=== PATIENT | female | born 1955 ===

== ENCOUNTER 2016-12-22 15:28 | Observation (INO) | payer SELFPAY ==
--- NOTE | 2016-12-22 16:18 | ED PDOC ---
Lower Extremity Pain/Injury Time Seen by Provider: 12/22/16 15:45 Chief Complaint (Nursing): Lower Extremity Problem/Injury Chief Complaint (Provider): Lower Extremity Problem History Per: Patient History/Exam Limitations: no limitations Onset/Duration Of Symptoms: Days (1x week) Current Symptoms Are (Timing): Still Present Severity: Moderate Additional Complaint(s): 61 year old female who was being evaluated in family medicine clinic today who sent patient to ED. Patient reports left lower extremity swelling for 1x week and chest pain for the past 3x days. She also complains of worsening sob. She denies any trauma to the leg, and denies having any associated symptoms of fevers, cough, ear or eye symptoms, abdominal pain, nausea, vomiting, diarrhea, and dysuria. PMD: Krystal Puri MD Past Medical History Reviewed: Historical Data, Nursing Documentation, Vital Signs Vital Signs: Last Vital Signs Temp 97.8 F 12/22/16 15:30 Pulse 74 12/22/16 15:30 Resp 16 12/22/16 15:30 BP 152/90 H 12/22/16 15:30 Pulse Ox 100 12/22/16 15:30 - Medical History PMH: Hypothyroidism Other PMH: chronic shortness of breath - Surgical History Other surgeries: thyroidectomy - Family History Family History: States: Unknown Family Hx - Social History Current smoker - smoking cessation education provided: No Alcohol: None Drugs: Denies - Home Medications Home Medications: Ambulatory Orders Medication Instructions Recorded Levothyroxine [Synthroid] 75 mcg PO DAILY 07/19/16 - Allergies Allergies/Adverse Reactions: Allergies Allergy/AdvReac Type Severity Reaction Status Date / Time No Known Allergies Allergy Verified 12/22/16 15:30 Review of Systems ROS Statement: Except As Marked, All Systems Reviewed And Found Negative Constitutional: Negative for: Fever, Chills Eyes: Negative for: Pain ENT: Negative for: Ear Pain Cardiovascular: Positive for: Chest Pain (3x days) Respiratory: Positive for: Shortness of Breath (chronic). Negative for: Cough Gastrointestinal: Negative for: Nausea, Vomiting, Abdominal Pain, Diarrhea Genitourinary Female: Negative for: Dysuria Musculoskeletal: Positive for: Other (left lower leg swelling). Negative for: Leg Pain Psych: Negative for: Anxiety, Depression Physical Exam - Reviewed Nursing Documentation Reviewed: Yes Vital Signs Reviewed: Yes - Physical Exam Appears: Positive for: Well, Non-toxic, No Acute Distress Head Exam: Positive for: ATRAUMATIC, NORMOCEPHALIC Skin: Positive for: Normal Color, Warm, Dry Cardiovascular/Chest: Positive for: Regular Rate, Rhythm Respiratory: Positive for: Normal Breath Sounds. Negative for: Respiratory Distress Gastrointestinal/Abdominal: Positive for: Normal Exam, Soft. Negative for: Tenderness Extremity: Positive for: Tenderness (left madhavi: pin point tenderness), Swelling (left calf swelling. left ankle swelling.), Other (right lower extremity: normal ) Neurologic/Psych: Positive for: Alert, Oriented (3x) - Laboratory Results Result Diagrams: 12/22/16 16:58 12/22/16 16:58 - ECG O2 Sat by Pulse Oximetry: 100 (RA) Pulse Ox Interpretation: Normal Medical Decision Making Medical Decision Makin:45 Initial impression: 61 year old female with left lower leg swelling and chest pain. Differential diagnoses include but are not limited to ACS vs chf vs dvt: * XRay ankle AP lat 2 views left * US duplex lower extrm veinous left * B type natriuretic peptide * CK-MB * CMP * creatine phosphokinase * troponin I * CBC * aspirin * reevaluation Scribe Attestation: Documented by Perri Chavez, acting as a scribe for Caridad Rutledge MD. Provider Scribe Attestation: All medical record entries made by the Scribe were at my direction and personally dictated by me. I have reviewed the chart and agree that the record accurately reflects my personal performance of the history, physical exam, medical decision making, and the department course for this patient. I have also personally directed, reviewed, and agree with the discharge instructions and disposition. 5:32PM EKG shows NSR at 65pm with normal intervals and no ST changes. U/s negative for dvt. Trop x 1 negative. BNP negative. Cxray negative. Spoke to Dr. Masters, family medicine and patient to be transferred to tele observation for chest pain , shortness fo breath. Disposition - Clinical Impression Clinical Impression: Chest pain - Disposition Disposition Time: 18:00 Condition: FAIR - Pt Status Changed To: Hospital Disposition Of: Observation
[2016-12-22 17:05] LABS: BASO % 0.6 % (0.0-2.0); EOS # 0.1 K/uL (0.0-0.7); EOS % 1.9 % (0.0-4.0); LYMPH # 1.4 K/uL (1.0-4.3); LYMPH % 25.8 % (20.0-40.0); MEAN CELL VOLUME 87.4 fl (81.0-99.0); MEAN CORPUSCULAR HEMOGLOBIN 28.6 pg (27.0-31.0); MEAN CORPUSCULAR HGB CONC 32.7 g/dL (33.0-37.0); MONO # 0.4 K/uL (0.0-0.8); MONO % 8.2 % (0.0-10.0); NEUT # 3.3 K/uL (1.8-7.0); NEUT % 63.5 % (50.0-75.0); NRBC % 0.1 % (0.0-0.0); RED CELL DISTRIBUTION WIDTH 13.4 % (11.5-14.5); WHITE BLOOD COUNT 5.3 K/uL (4.8-10.8)
--- NOTE | 2016-12-22 17:21 | US ---
HISTORY: Left lower extremity swelling . PRIORS: None. FINDINGS: 2-D, color and duplex Doppler analysis of the lower extremity venous circulation using routine protocol from the femoral veins through the popliteal veins. Venous compressibility: Normal. Flow and augmentation patterns: Normal. Visualized veins upper third of calf: Normal. Rose cyst: None. IMPRESSION: No sonographic or Doppler evidence for DVT in left lower extremity.
[2016-12-22 17:23] LABS: ALB/GLOB RATIO 1.2 (1.0-2.1); ALKALINE PHOSPHATASE 69 U/L (38-126); ALT/SGPT 30 U/L (9-52); AST/SGOT 23 U/L (14-36); BILIRUBIN,TOTAL 0.5 mg/dl (0.2-1.3); BLOOD UREA NITROGEN 11 mg/dl (7-17); CALCIUM 8.6 mg/dL (8.4-10.2); CARBON DIOXIDE 29 mmol/L (22-30); CHLORIDE 106 mmol/L (98-107); GFR AFRICAN-AMERICAN > 60; GLUCOSE,RANDOM 89 mg/dL (65-105); POTASSIUM 3.6 MMOL/L (3.6-5.0); SODIUM 142 mmol/l (132-148); TOTAL PROTEIN 7.6 G/DL (6.3-8.2)
--- NOTE | 2016-12-22 20:34 | CP.PCM.HP ---
History of Present Illness - History of Present Illness History of Present Illness: CC: Chest pain and LLE swelling 61F referred from [facility] for LLE swelling for 2 weeks without recent travel, immobilization, or trauma. Denies improvement in mornings after having extremity elevated overnight, and at time of evaluation denied any calf/leg pain. Recent onset of constipation and denies having any trouble before and reports she used to be regular. She denies any blood or mucous with BM In addition, patient c/o intermittent sharp, non-radiating chest pain that occurs w/wo activity and is not associated with dizziness/SOB/palpitations/ diaphoresis/nausea. Otherwise, she denies cough, fevers, chills, weight loss, loss of appetite, vaginal bleeding, abdominal pain, dysuria. PMH: HLD, Uterine ca, thyroid ca?, hypothyroid PSH: partial thyroidectomy (as per patient), SURESH/BSO Denies smoking/alcohol/drugs ALL: NKDA ANDREW: Synthroid 75mcg, PO, Daily Present on Admission - Present on Admission Any Indicators Present on Admission: No Review of Systems - Review of Systems All systems: reviewed and no additional remarkable complaints except - Cardiovascular Cardiovascular: Chest Pain - Integumentary Integumentary: Swelling (LLE) Past Patient History - Past Medical History & Family History Past Medical History?: Yes - Past Social History Alcohol: None Drugs: Denies - ENDOCRINE/METABOLIC Hx Endocrine Disorders: Yes - PSYCHIATRIC Hx Substance Use: No - SURGICAL HISTORY Hx Surgeries: Yes Hx Thyroidectomy: Yes - ANESTHESIA Hx Anesthesia: Yes Hx Anesthesia Reactions: No Hx Malignant Hyperthermia: No Meds Allergies/Adverse Reactions: Allergies Allergy/AdvReac Type Severity Reaction Status Date / Time No Known Allergies Allergy Verified 12/22/16 15:30 Physical Exam - Constitutional Appears: Well, Non-toxic, No Acute Distress - Head Exam Head Exam: ATRAUMATIC, NORMAL INSPECTION - Eye Exam Eye Exam: EOMI, PERRL - ENT Exam ENT Exam: Mucous Membranes Moist, Normal Exam - Neck Exam Neck exam: Positive for: Normal Inspection (Has scar from partial thyroidectomy) . Negative for: Lymphadenopathy - Respiratory Exam Respiratory Exam: Clear to Auscultation Bilateral, NORMAL BREATHING PATTERN. absent: Rales, Wheezes - Cardiovascular Exam Cardiovascular Exam: REGULAR RHYTHM. absent: JVD - GI/Abdominal Exam GI & Abdominal Exam: Normal Bowel Sounds, Soft. absent: Tenderness - Extremities Exam Extremities exam: Positive for: full ROM, normal capillary refill, pedal pulses present. Negative for: normal inspection (LLE non-pitting edema, non- erythematous, no cords palpated, no pain, checked groin for LN was negative), pedal edema - Neurological Exam Neurological exam: Alert, Oriented x3 Results - Vital Signs Recent Vital Signs: Last Vital Signs Temp 36.3 C L 12/22/16 20:08 Pulse 70 12/22/16 20:08 Resp 18 12/22/16 20:08 BP 160/78 H 12/22/16 20:08 Pulse Ox 99 12/22/16 20:08 - Labs Result Diagrams: 12/22/16 16:58 12/22/16 16:58 Assessment & Plan (1) Chest pain Assessment and Plan: History and physical exam inconsistent with cardiac-related chest pain at this time. MSK vs. reflux - Serial Troponins - repeat TSH Status: Acute (2) Left leg swelling Assessment and Plan: Ultrasound negative for DVT, no enlarged LN palpated at groin and no cords, pedal pulses present. Cannot rule out LEFT pelvic vein/LN/mass leading to obstruction or external compression on venous return. Patient does report recent onset constipation which would be unrelated to current thyroid levels, however she denies appetite or weight changes. - f/u official duplex results - Consider pelvic imaging to rule out occult masses Status: Acute (3) DVT prophylaxis Assessment and Plan: Lovenox 40mg, SC, Daily Status: Acute
[2016-12-22 21:29] LABS: THYROID STIMULATING HORMONE 0.56 mIU/ML (0.46-4.68)
[2016-12-23] MEDS ORDERED: Levothyroxine 75 MCG TAB PO SCH (06:30)
--- NOTE | 2016-12-23 08:22 | RAD ---
HISTORY: chest pain COMPARISON: No prior. FINDINGS: LUNGS: No active pulmonary disease. PLEURA: No significant pleural effusion identified, no pneumothorax apparent. CARDIOVASCULAR: Normal. OSSEOUS STRUCTURES: No significant abnormalities. VISUALIZED UPPER ABDOMEN: Normal. OTHER FINDINGS: None. IMPRESSION: No active disease.
--- NOTE | 2016-12-23 08:31 | RAD ---
PROCEDURE: Left Ankle Radiographs. HISTORY: ankle swelling COMPARISON: None FINDINGS: BONES: Normal. No fracture. JOINTS: Normal. No osteoarthritis. Ankle mortise maintained. Talar dome intact SOFT TISSUES: [id number] soft tissue swelling seen around the left ankle. OTHER FINDINGS: None. IMPRESSION: No evidence of acute fracture or dislocation. [id number] soft tissue swelling.
[2016-12-23] MEDS ORDERED: Enoxaparin 40 mg Syringe SC SCH (09:00)
--- NOTE | 2016-12-23 12:50 | CP.PCM.PN ---
Subjective - Date & Time of Evaluation Date of Evaluation: 12/23/16 Time of Evaluation: 09:00 - Subjective Subjective: No acute events overnight. Patient seen and examined bedside. Sitting upright in bed, no acute distress. Chest pain resolved for now. Complaining of tenderness mainly in left lower extremity. Hurts with walking, tender to palpation. She stands all day while working, does not ambulate much at work. Denies history of personal or family history of DVT. Objective - Vital Signs/Intake and Output Vital Signs (last 24 hours): Temp Pulse Resp BP Pulse Ox 98.0 F 70 18 125/69 97 12/23/16 12:41 12/23/16 12:41 12/23/16 12:41 12/23/16 12:41 12/23/16 12:41 - Medications Medications: Current Medications Enoxaparin Sodium (Lovenox) 40 mg SC DAILY [facility] PRN Reason: Protocol Last Admin: 12/23/16 08:18 Dose: 40 mg Levothyroxine Sodium (Synthroid) 75 mcg PO DAILY@0630 [facility] Last Admin: 12/23/16 06:05 Dose: 75 mcg - Constitutional Appears: No Acute Distress - Head Exam Head Exam: NORMAL INSPECTION - ENT Exam ENT Exam: Mucous Membranes Moist - Respiratory Exam Respiratory Exam: Clear to Ausculation Bilateral, NORMAL BREATHING PATTERN. absent: Respiratory Distress - Cardiovascular Exam Cardiovascular Exam: REGULAR RHYTHM, RRR, +S1, +S2 - GI/Abdominal Exam GI & Abdominal Exam: Soft, Normal Bowel Sounds. absent: Tenderness - Extremities Exam Additional comments: visually, left calf appears larger than right, severe tenderness in lower leg and upper thigh to deep palpation. ?cord palpable left calf and thigh. no erythema, no warmth. no varices. - Neurological Exam Neurological Exam: Alert, Awake, CN II-XII Intact, Oriented x3 - Psychiatric Exam Psychiatric exam: Normal Affect, Normal Mood - Skin Skin Exam: Dry, Intact, Normal Color Assessment and Plan - Assessment and Plan (Free Text) Assessment: 61 year old female with pmh of hypothyroidism presented with 2 week hx of left leg swelling and pain as well as chest pain, admitted for rule out ACS, rule out DVT (1) Chest pain Assessment and Plan: Resolved, appears to be cardiac in nature however ACS ruled out -troponins negative x 2 - repeat TSH WNL - d.dimer: 133 Status: Acute (2) Left leg swelling Assessment and Plan: -clinically concerning for dvt, very tender to palpation calf and thigh, ?cord palpable. consider thrombophlebitis as underlying etiology however u.s neg, ddimer 133. -xray left lower extremity: follow up results -will review ultrasound further. Status: Acute (3) DVT prophylaxis Assessment and Plan: Lovenox 40mg, SC, Daily Status: Acute (4) Hypothyroidism -chronic, controlled -levothyroxine 75 mcg
--- NOTE | 2016-12-23 15:27 | RAD ---
PROCEDURE: Left Hip X-ray Radiographs. HISTORY: pain COMPARISON: None. FINDINGS: BONES: Normal. No fracture. JOINTS: Mild osteoarthritic changes SOFT TISSUES: Normal. OTHER FINDINGS: None. IMPRESSION: No evidence of acute fracture or dislocation. Mild osteoarthritic changes.
--- NOTE | 2016-12-23 15:59 | RAD ---
PROCEDURE: Left Femur Radiographs. HISTORY: pain COMPARISON: None. TECHNIQUE: AP and Lateral Radiographs of the left femur. FINDINGS: FEMUR: Normal. No fracture. SOFT TISSUES: Normal. OTHER FINDINGS: None. IMPRESSION: Unremarkable radiographs of the left femur.
--- NOTE | 2016-12-23 16:00 | RAD ---
PROCEDURE: Radiographs of the left tibia and fibula. HISTORY: pain COMPARISON: None available. TECHNIQUE: Frontal and lateral views obtained. FINDINGS: BONES: No fracture or destructive lesion. JOINT SPACES: Unremarkable. OTHER FINDINGS: None. IMPRESSION: No evidence of acute fracture or dislocation.
[2016-12-23 16:10] VITALS: BP 118/72; PULSE 76; RESP 16; TEMP 98; O2SAT 98
--- NOTE | 2016-12-27 14:14 | CARD ---
APPROVED REPORT EKG Measurement Heart [id number] <Conclusion> Normal sinus rhythm Normal ECG
== END 2016-12-23 16:53 | disposition home or self-care (01) ==
LOC: H.ER 15:28 → H.ERHOLD 17:47 → H.TEL 19:45
PROVIDERS: ADMIT Family Medicine Geriatric Medicine; ATTEND Family Medicine Geriatric Medicine
DX: R07.9 Chest pain, unspecified (principal); E78.5 Hyperlipidemia, unspecified; E03.9 Hypothyroidism, unspecified; M79.89 Other specified soft tissue disorders; Z85.42 Personal history of malignant neoplasm of other parts of uterus

== ENCOUNTER 2017-05-21 10:31 | Emergency (ER) | payer SELFPAY ==
[2017-05-21 10:35] VITALS: BMI 27.6
[2017-05-21 10:37] VITALS: BP 124/69; PULSE 77; RESP 17; TEMP 97.6; O2SAT 99
--- NOTE | 2017-05-21 12:50 | ED PDOC ---
Lower Extremity Pain/Injury Time Seen by Provider: 05/21/17 11:09 Chief Complaint (Nursing): Lower Extremity Problem/Injury Chief Complaint (Provider): right leg pain History Per: Patient History/Exam Limitations: no limitations Additional Complaint(s): 62yo F in ED for eval of leg pain-states that last week she attempted to get into a car and noted sharp pain to her right thigh radiation down her leg now with pain on walking , calf pain without swelling or SOB, CP. no hx of blunt trauma to leg. no PE/DVT hx . no abd pain - Risk Factors DVT Risk Factors: Pos: None Past Medical History Reviewed: Historical Data, Nursing Documentation, Vital Signs Vital Signs: Last Vital Signs Temp 97.6 F 05/21/17 10:36 Pulse 77 05/21/17 10:36 Resp 17 05/21/17 10:36 BP 124/69 05/21/17 10:36 Pulse Ox 99 05/21/17 10:36 - Medical History PMH: Hypothyroidism Denies: HIV, Chronic Kidney Disease - Family History Family History: States: Unknown Family Hx - Home Medications Home Medications: Ambulatory Orders Medication Instructions Recorded Levothyroxine [Synthroid] 75 mcg PO DAILY 07/19/16 Levothyroxine [Synthroid] 75 mcg PO DAILY@0630 tab 12/23/16 Naproxen [Naprosyn] 500 mg PO Q12 #14 tablet 12/23/16 Naproxen 500 mg PO BID #30 tab 05/21/17 - Allergies Allergies/Adverse Reactions: Allergies Allergy/AdvReac Type Severity Reaction Status Date / Time No Known Allergies Allergy Verified 12/22/16 15:30 Wells Criteria for PE - Wells Criteria for Pulmonary Embolism Clinical Signs and Symptoms of DVT: Yes P.E is #1 Diagnosis, or Equally Likely: No Heart Rate >100: No Immobilization at least 3 days;Surgery previous 4 weeks: No Previous, objectively diagnosed PE or DVT: No Hemoptysis: No Malignancy w/treatment within 6 months, or palliative: No Total Score: 3 Review of Systems ROS Statement: Except As Marked, All Systems Reviewed And Found Negative Constitutional: Negative for: Fever, Chills Musculoskeletal: Positive for: Leg Pain Physical Exam - Reviewed Nursing Documentation Reviewed: Yes Vital Signs Reviewed: Yes - Physical Exam Appears: Positive for: Well, Non-toxic, No Acute Distress Skin: Positive for: Normal Color, Warm, DRY Cardiovascular/Chest: Positive for: Regular Rate, Rhythm Respiratory: Positive for: CNT, Normal Breath Sounds Gastrointestinal/Abdominal: Positive for: Normal Exam, Bowel Sounds, Soft. Negative for: Tenderness Back: Positive for: Normal Inspection. Negative for: L CVA Tenderness, R CVA Tenderness Extremity: Positive for: Calf Tenderness (right calf pain), Swelling Neurologic/Psych: Positive for: Alert, Oriented - ECG O2 Sat by Pulse Oximetry: 99 - Progress ED Course And Treament: r/o DVT via US Medical Decision Making Medical Decision Making: negative for DVT pt most likely with spasm to MSK will be given torodol IM adn advised to have pmd f/u Disposition - Clinical Impression Clinical Impression: Leg pain - Patient ED Disposition Is Patient to be Admitted: No Counseled Patient/Family Regarding: Studies Performed, Diagnosis, Need For Followup, Rx Given - Disposition Disposition: Routine/Home Disposition Time: 14:59 Condition: STABLE Prescriptions: Naproxen 500 mg PO BID #30 tab Instructions: Muscle Strain (ED) Forms: [facility] (Serbian)
--- NOTE | 2017-05-21 15:35 | US ---
PROCEDURE: Right lower extremity venous duplex Doppler. HISTORY: calf pain after injury COMPARISON: None available. TECHNIQUE: Common femoral, superficial femoral, popliteal and posterior tibial veins were evaluated. Flow was assessed with color Doppler, compressibility, assessment of phasic flow and augmentation response. FINDINGS: COMMON FEMORAL VEIN: Unremarkable. SUPERFICIAL FEMORAL VEIN: Unremarkable. POPLITEAL VEIN: Unremarkable. POSTERIOR TIBIAL VEIN: Unremarkable. OTHER FINDINGS: None. IMPRESSION: No evidence of deep venous thrombosis in the right lower extremity.
== END 2017-05-21 15:26 | disposition home or self-care (01) ==
LOC: H.ER 10:31
DX: M79.604 Pain in right leg (principal); E03.9 Hypothyroidism, unspecified
CPT/HCPCS: 93971; 96372; 99283; J1885